=== PATIENT | male | born 1950 | race Caucasian/White ===

== ENCOUNTER 2020-05-25 07:46 | Inpatient (IN) ==
--- NOTE | 2020-05-07 09:49 | PAT Medication Instructions ---
Medication Instructions Date of Service May 07, 2020 Home Medications aspirin 81 mg PO QPM clonidine HCl 0.4 mg PO BID diltiazem HCl 360 mg PO QPM hydrocodone-acetaminophen 1 - 2 tab PO Q8H PRN oxycodone 30 mg PO BID ASK your prescriber and surgeon aspirin 81 mg PO QPM Take morning of surgery With a small sip of water, OTHERWISE NOTHING TO EAT OR DRINK AFTER MIDNIGHT: clonidine HCl 0.4 mg PO BID hydrocodone-acetaminophen 1 - 2 tab PO Q8H PRN (okay to take up to 4 hours prior to surgery if needed) oxycodone 30 mg PO BID (okay to take up to 4 hours prior to surgery if needed) Take evening before surgery clonidine HCl 0.4 mg PO BID diltiazem HCl 360 mg PO QPM hydrocodone-acetaminophen 1 - 2 tab PO Q8H PRN (if needed) oxycodone 30 mg PO BID Other Notes If you have any questions please call us at [phone] or [phone] or [phone] or [phone]
--- NOTE | 2020-05-08 09:58 | Anesthesiology Consultation ---
Date of Service May 08, 2020 Assessment & Plan (1) Encounter for pre-operative examination: - Hx A. fib: SR on 12/2019 EKG. Patient on ASA, diltiazem. Patient states that Eliquis was discontinued "a while ago" by Dr. Hylton but most recent available cardiology note from 12/2019 mentions patient resuming Eliquis. Patient will see cardiology 05/11 and clarify whether or not he is to be taking Eliquis. Awaiting cardiology office visit note (Dr. Hylton). - Right "groin area" aneurysm: Awaiting most recent vascular note for aneurysm clarification ([facility]). Per PAT assessment on 05/08: Travel screen negative x 2+ weeks (traveled to [place] for 's doctor appt 3 weeks ago, followed COVID precaution guidelines). No known COVID-19 positive contacts. No current COVID-19 related symptoms. Surgeon arranging preop COVID testing. Awaiting results. Chart Review Chart Review: Patient seen in Pre Admission Testing Teaching & Discussion Pre-Anesthesia Teaching/Discussion Notes: Instructed NPO after midnight before surgery,except medications with 15 cc of water. Medication instructions provided according to the PAT guidelines. History Surgery Operation Date: 05/25/20 07:45 Proposed Procedures p L2-S1 Revison Decompression and Fusion, Spinal Cord Monitoring - Ryan King DO Height/Weight Height: 5 ft 7 in Weight: 84.7 kg Allergies Allergy/AdvReac Type Severity Reaction Status Date / Time No Known Allergies Allergy Verified 05/04/20 09:49 Medications Home Medications Medication Instructions Recorded Confirmed Last Taken aspirin 81 mg PO QPM 05/04/20 05/04/20 Unknown clonidine HCl 0.4 mg PO BID 05/04/20 05/04/20 Unknown diltiazem HCl 360 mg PO QPM 05/04/20 05/04/20 Unknown hydrocodone-acetaminophen 1 - 2 tab PO Q8H PRN 05/04/20 05/04/20 Unknown oxycodone 30 mg PO BID 05/04/20 05/04/20 Unknown Past Medical History Medical History (Updated 05/08/20 @ 11:30 by Katarina Hunter) Aneurysm "right groin area", stable under annual surveillance by [facility] vascular surgery Atrial fibrillation paroxysmal; SR per 12/2019 EKG, follows w/cardiology (Dr. 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) History of cardiac cath 2009- no stents/angioplasty History of cardioversion History of cholecystectomy History of lumbar surgery History of removal of cyst History of right inguinal hernia repair History of tonsillectomy Past Anesthesia History No Hx of Anesthesia Complications and No Family Hx of Anesthesia Complications History of PONV No Hx of PONV and No Hx of Motion Sickness Social History Smoking Status: Former smoker Do You Dip or Chew Tobacco: No Smoking End Date: Quit 8 years ago Hx Alcohol Use: No Hx Substance Use: No substance use type: does not use Review of Systems Patient denies chest pain, shortness of breath, dyspnea on exertion, fever, chills, cough, wheezing, palpitations. Physical Exam Vital Signs VITALS BP 174/83 P 70 TEMP 98.3 SP02 96%RA RESP 16 PHYSICAL Full neck and c-spine range of motion. Full TMJ range of motion. TMD 3.5 finger breaths Mallampati Score 3 Dentition: full dentures upper/lower Lungs: clear throughout to auscultation Cardiac: regular rate and rhythm, no murmurs noted Spine: normal Carotid arteries: negative bruit Extremities: right hand finger amputations Testing Laboratory Results 05/08/20 10:19 05/08/20 10:19 PT 10.9 Seconds (9.0-12.0) 05/08/20 10:19 INR 1.0 (0.9-1.1) 05/08/20 10:19 APTT 25.3 Seconds (21.0-31.0) 05/08/20 10:19 Urine Color Yellow 05/08/20 10:19 Urine Appearance Clear (Clear) 05/08/20 10:19 Urine pH 7.5 (4.5-7.5) 05/08/20 10:19 Ur Specific [place] 1.006 (1.000-1.030) 05/08/20 10:19 Urine Protein Negative (Negative) 05/08/20 10:19 Urine Glucose (UA) Negative (Negative) 05/08/20 10:19 Urine Ketones Negative (Negative) 05/08/20 10:19 Urine Nitrite Negative (Negative) 05/08/20 10:19 Ur Leukocyte Esterase Negative (Negative) 05/08/20 10:19 Blood Type AB Positive 05/08/20 10:19 Antibody Screen NEGATIVE 05/08/20 10:19 Electrocardiogram Date: 12/12/19 SR at 69bpm. RBBB. Atypical T axis/anterolateral depression (in setting of artifact/poor data quality). Reviewed by cardiology at 12/12/19 cardiology preop office visit and felt "cleared from cardiac standpoint" for back surgery. Chest X-Ray Date: 05/08/20 Findings: + NAD Echocardiogram Date: 11/06/17 EF 66%. Mild LAE. Borderline aortic root dilation. Grade I DD. No significant valvular disease.
--- NOTE | 2020-05-08 10:50 | XRay Report ---
XR chest Pre-admission PA/Lat CLINICAL HISTORY: pat preoperative COMPARISON STUDY: No previous studies for comparison. FINDINGS: The bones soft tissues and hemidiaphragms are normal. The cardiomediastinal silhouette is n ormal. The lungs are clear. The pulmonary vasculature is normal. IMPRESSION: Negative chest. ACT 112: Negative or not required by law. The above report was generated using voice recognition software. It may contain grammatical, syntax or spelling errors. Electronically signed by: Shahram Thompson M.D. 05/08/2020 10:49 AM
[2020-05-08 12:10] LABS: Basophils # (auto) 0.07 K/uL (0-0.2); Basophils % (auto) 0.7 %; Eosinophils # (auto) 0.09 K/uL (0-0.5); Eosinophils % (auto) 0.9 %; Hematocrit (blood only) 41.5 % (42-52); Hemoglobin 13.5 g/dL (14.0-18.0); Immature Granulocytes # (auto) 0.06 K/uL (0.00-0.02); Immature Granulocytes % (auto) 0.6 %; Lymphocytes # (auto) 1.13 K/uL (1.2-3.4); Lymphocytes % (auto) 11.6 %; Mean Corpuscular Hemoglobin 28.1 pg (25-34); Mean Corpuscular Hgb Conc 32.5 g/dL (32-36); Mean Corpuscular Volume 86.3 fL (80-100); Mean Platelet Volume 9.1 fL (7.4-10.4); Monocytes # (auto) 0.54 K/uL (0.11-0.59); Monocytes % (auto) 5.5 %; Neutrophils # (auto) 7.84 K/uL (1.4-6.5); Neutrophils % (auto) 80.7 %; Platelet Count 300 K/uL (130-400); RDW Coefficient of Variation 13.6 % (11.5-14.5); RDW Standard Deviation 42.8 fL (36.4-46.3); Red Blood Count 4.81 M/uL (4.7-6.1); White Blood Count 9.73 K/uL (4.8-10.8)
[2020-05-08 12:11] LABS: Appearance Urine Clear (Clear); Bilirubin Urine Negative (Negative); Blood Urine Negative (Negative); Color Urine Yellow; Glucose Urine UA Negative (Negative); Ketones Urine Negative (Negative); Leukocyte Esterase Urine Negative (Negative); Nitrite Urine Negative (Negative); Protein Urine Negative (Negative); Specific Gravity Urine 1.006 (1.000-1.030); Urobilinogen Urine Negative (Negative); pH Urine 7.5 (4.5-7.5)
[2020-05-08 12:19] LABS: BUN Creatinine Ratio 10.8 (10-20); Calcium 9.3 mg/dl (8.5-10.1); Creatinine Clr Calc Pharmacy 53.4 ml/min; Est GFR (African American) 61.8; Est GFR (Non-African American) 53.3
[2020-05-08 12:20] LABS: Partial Thromboplastin Ratio 0.9; Partial Thromboplastin Time 25.3 Seconds (21.0-31.0); Prothrombin Time 10.9 Seconds (9.0-12.0)
[~2020-05-25 07:46] MED LIST: ACETAMINOPHEN 500 MG TAB PO SCH; CEFAZOLIN 2000MG 2,000 MG/15 ML SYR IV SCH; CeleBREX 200 MG CAP PO SCH; GABAPENTIN 300 MG CAP PO SCH; LR 15ML/HR IV SCH
[2020-05-25] MEDS ORDERED: HYDROmorphone INJ 2 MG/ML SYR/VIAL ONE (08:19)
[2020-05-25] MEDS ORDERED: fentaNYL citrate 100 MCG/2 ML VIAL ONE (08:19)
[2020-05-25] MEDS ORDERED: MIDAZOLAM HCL 1 MG/ML 2ML VIAL ONE (08:19)
[2020-05-25] MEDS ORDERED: ePHEDrine sulfate 50 MG/ML AMP IV PRN (08:24)
[2020-05-25] MEDS ORDERED: ONDANSETRON INJ 2 MG/ML 2 ML VIAL IV PRN ×2 (08:24→12:50)
[2020-05-25] MEDS ORDERED: ATROPINE SULFATE 0.1 MG/ML 10ML SYR IV PRN (08:24)
--- NOTE | 2020-05-25 09:14 | History & Physical Bridge Note ---
Date of Service May 25, 2020 History & Physical Bridge Note I have examined the patient, reviewed the History & Physical and in the interval since the performance of the History & Physical I have noted the following changes of clinical significance: no changes noted
--- NOTE | 2020-05-25 09:15 | History & Physical Report ---
Date of Service May 25, 2020 Assessment & Plan (1) Neurogenic claudication due to lumbar spinal stenosis: Admission and Anticipated Discharge Date Admission Date: L2-S1 revision decompression fusion History of Present Illness Chief Complaint: Back and bilateral leg pain Primary Care Provider: Joseph Bradley This is a 7-year-old male who presents with worsening back and bilateral leg pain. After failing extensive course of nonoperative care here for surgical intervention. Allergies Allergy/AdvReac Type Severity Reaction Status Date / Time No Known Allergies Allergy Verified 05/25/20 08:19 Home Medications Home Medications Medication Instructions Recorded Confirmed Type aspirin 81 mg PO QPM 05/04/20 05/25/20 History clonidine HCl 0.4 mg PO BID 05/04/20 05/25/20 History diltiazem HCl 360 mg PO QPM 05/04/20 05/25/20 History hydrocodone-acetaminophen 1 - 2 tab PO Q8H PRN 05/04/20 05/25/20 History oxycodone 30 mg PO BID 05/04/20 05/25/20 History Past Med/Surg History Medical History (Updated 05/25/20 @ 09:15 by Ryan King DO) Aneurysm "right groin area", stable under annual surveillance by [facility] vascular surgery Atrial fibrillation paroxysmal; SR per 12/2019 EKG, follows w/cardiology (Dr. 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) History of cardiac cath 2009- no stents/angioplasty History of cardioversion History of cholecystectomy History of lumbar surgery History of removal of cyst History of right inguinal hernia repair History of tonsillectomy Family History Mother Diabetes Father Colon cancer Other No family history of adverse response to anesthesia Social History Smoking Status: Former smoker Smoking End Date: Quit 8 years ago; Second Hand Exposure: No; Do You Dip or Chew Tobacco: No; Tobacco Cessation Education Requested by Patient: No Hx Alcohol Use: No Hx Substance Use: No Preferred Language: [place] Communication Ability: Effective 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 Heart regular rate and rhythm. Lungs clear to auscultation. Results & Data ([facility]) Vital Signs (Past 12 Hours) Vital Signs Temp Pulse Resp BP Pulse Ox 05/25/20 08:24 36.7 C 74 18 163/82 H 93
[2020-05-25] MEDS ORDERED: BUPIVACAINE/EPINEPHRINE 0.25% 1:200,000 30 ML VIAL ONE (09:26)
[2020-05-25] MEDS ORDERED: BACITRACIN INJ 50,000 UNIT VIAL ONE (09:26)
[2020-05-25] MEDS ORDERED: ALBUMIN HUMAN 5% 12.5 GM/250 ML VIAL IV ONE (09:38)
[2020-05-25] MEDS ORDERED: DEXAMETHASONE SOD INJ 4 MG/ML VIAL ONE (11:16)
[2020-05-25] MEDS ORDERED: ROCURONIUM BROMIDE 10 MG/ML 5 ML VIAL IV ONE ×2 (11:16→13:58)
[2020-05-25] MEDS ORDERED: LIDOCAINE HCL 2% 2 ML VIAL/AMP(20MG/ML) INFIL ONE (11:16)
[2020-05-25] MEDS ORDERED: PROPOFOL IV EMULSION 10 MG/ML 20 ML VIAL IV ONE (11:16)
[2020-05-25] MEDS ORDERED: ONDANSETRON INJ 2 MG/ML 2 ML VIAL ONE (11:16)
[2020-05-25] MEDS ORDERED: ePHEDrine sulfate 50 MG/ML SYR ONE (11:17)
[2020-05-25] MEDS ORDERED: NEOSTIGMINE METHYLSULFATE 1 MG/ML 10ML VIAL ONE (11:17)
[2020-05-25] MEDS ORDERED: GLYCOPYRROLATE 0.2 MG/ML VIAL ONE (11:17)
[2020-05-25] MEDS ORDERED: FLOSEAL HEMOSTATIC MATRIX 10ML TOP ONE (12:25)
--- NOTE | 2020-05-25 12:34 | Fluoroscopy Report ---
FL lumbar spine 2-3V HISTORY: 70 years-old Male L2-S1 REVISON DECOMPRESSION AND FUSION COMPARISON: Chest radiograph 03/08/2020 TECHNIQUE: 3 spot fluoroscopic images of the lumbar spine were obtained utilizing 38.6 seconds fluoro scopy time FINDINGS: Posterior interbody screws at L2-S1 appear intact. Multilevel disc space narrowing with spondylitic s purring and facet arthrosis. IMPRESSION: Fluoroscopic assistance as above. Please see operative report for further details. ACT 112: Negative or not required by law. The above report was generated using voice recognition software. It may contain grammatical, syntax o r spelling errors. Electronically signed by: Daniel Root M.D. 05/25/2020 12:32 PM
[2020-05-25] MEDS ORDERED: HYDROmorphone INJ 0.5 MG/0.5 ML SYR IV PRN (12:50)
[2020-05-25] MEDS ORDERED: ONDANSETRON 4 MG OD TAB PO PRN (12:50)
[2020-05-25] MEDS ORDERED: PROMETHAZINE HCL 12.5 MG in SODIUM CHLORIDE 0.9% 50 ML IV PRN (12:50)
[2020-05-25] MEDS ORDERED: METOCLOPRAMIDE HCL INJ 5 MG/ML 2 ML VIAL IV PRN (12:50)
[2020-05-25] MEDS ORDERED: MAGNESIUM HYDROXIDE SUSP 30 ML UDC PO PRN (12:50)
[2020-05-25] MEDS ORDERED: ACETAMINOPHEN 500 MG TAB PO PRN (12:50)
[2020-05-25] MEDS ORDERED: ACETAMINOPHEN 1,000 MG/100 ML VIAL IV PRN (12:50)
[2020-05-25] MEDS ORDERED: LORazepam 0.5 MG/1 ML VIAL IV PRN (12:50)
[2020-05-25] MEDS ORDERED: LORazepam 0.5 MG TAB PO PRN (12:50)
[2020-05-25] MEDS ORDERED: DO NOT ADMINISTER PNEUMOCOCCAL VACCINE PRN (12:50)
[2020-05-25] MEDS ORDERED: TRAMADOL HCL 50 MG TABLET PO PRN (12:50)
[2020-05-25] MEDS ORDERED: NALOXONE HCL 0.4 MG/1 ML VIAL/CARP IV PRN (12:50)
[2020-05-25] MEDS ORDERED: FAMOTIDINE 20 MG TAB PO PRN (12:50)
[2020-05-25] MEDS ORDERED: DO NOT ADMINISTER FLU VACCINE PRN (12:50)
[2020-05-25] MEDS ORDERED: ALUMINUM/MAGNESIUM SUSP 30 ML UDC PO PRN (12:50)
[2020-05-25] MEDS ORDERED: SOD PHOSPHATE/SOD BIPHOSPHATE ENEMA 132 ML BTL PR PRN (12:50)
[2020-05-25] MEDS ORDERED: bisacodyL 10 MG SUPP PR PRN (12:50)
--- NOTE | 2020-05-25 12:50 | Operative Report ---
Post Operative Report Pre & Post Diagnosis Operation Date: 05/25/20 09:35 Pre-Op Diagnosis: Spinal Stenosis, Lumbar Region Post-Op Diagnosis: Spinal Stenosis, Lumbar Region I identified the patient and participated in the time-out.: Yes Procedure Operation Date: 05/25/20 09:35 Actual Procedures #1 revision decompression L4-5 L5-S1. #2 posterior spinal fusion L2-3, L3-4, L4-5 and L5-S1. #3 placement posterior segmental instrumentation L2-S1. #4 placement infuse collagen sponge plan master graft in the posterior gutters L 2 to S1. Surgeon Ryan King, Dish Carrier Gavin Aguilar Estimated Blood Loss 100 Findings Consistent with Post-Op Diagnosis Specimens None Indications This is a 70-year-old male who presents with marked decline in status and ambulating ambulate for any distance and is here to undergo the above-mentioned procedure. Description of Procedure Patient was met with identified informed consent obtained. Patient was then taken to the operative suite underwent an patient placed in a prone position the Zain table on top of the Tres frame. All bony prominences well-padded eyes inspected to ensure no external pressure placed upon up at this point the lumbar spine was prepped and draped in a sterile fashion. Sharp dissection with assistance pericardial performed down to and exposing the remaining lamina and transverse processes of L2 and L3-L4-L5 and sacral ala bilaterally. And then performed revision decompression medial facetectomies L4-5 L5-S1. Pedicle screws were then placed in L2 L3-L4-L5 and S1 levels bilaterally with us assistance of fluoroscopy the proper sized ty locked in position. Transverse processes of L2 L3-L4-L5 and the sacral ala were then burred to subcortical bleeding bone. Infuse collagen sponge and master graft was placed in posterior gutters. An incidental durotomy was noted proximally at the L2-3 level and closed with interrupted 4-0 Nurolon and DuraSeal. No persistent leak was noted. 15 round NAGÉLICA drain inserted. The incision was then closed with 1 Vicryl in the fascia 2-0 Vicryl subcutaneously and 4 Monocryl for final skin closure. Steri- Strip sterile dressings placed. Patient waken taken PACU stable condition. Please note Gavin burciaga was present at the entire procedure involved the patient positioning complex portions of the surgery and final skin closure. Lastly spinal cord monitoring was utilized throughout the procedure no changes noted. I attest to the content of the Intraoperative Record and any orders documented therein. Any exceptions are noted below.
--- NOTE | 2020-05-25 13:44 | Anesthesiology Progress Note ---
Date of Service May 25, 2020 Anesthesia Post Procedure Vital Signs Vital Signs: Temp Pulse Pulse Resp BP Pulse Ox 05/25/20 13:35 85 19 145/78 H 96 05/25/20 13:25 75 15 131/65 98 05/25/20 13:15 78 11 L 135/65 97 05/25/20 13:06 97.9 F 92 H 16 144/69 H 98 05/25/20 08:24 98.1 F 74 18 163/82 H 93 Pain Intensity Back: Pain Intensity: 1 Transfer of Care Handoff Completed per policy Notes Mental Status: alert / awake / arousable and participated in evaluation Patient Amnestic to Procedure: Yes Nausea / Vomiting: adequately controlled Pain: adequately controlled Airway Patency, RR, SpO2: stable & adequate BP & HR: stable & adequate Hydration State: stable & adequate Anesthetic Complications: no major complications apparent and Pt Satisfied with anesthetic care
[2020-05-25] MEDS ORDERED: LARYING-O-JET KIT (LTA) ONE (13:57)
[2020-05-25] MEDS: fentaNYL citrate 100 MCG/2 ML VIAL IV PRN ×4 (14:40→15:00)
[2020-05-25] MEDS: SODIUM CHLORIDE 0.9% 1000ML 1,000 ML IV SCH (15:50)
[2020-05-25] MEDS: HYDROmorphone INJ 1 MG/ML SYRINGE IV PRN (15:57)
--- NOTE | 2020-05-25 17:52 | Hospitalist Consultation ---
Date of Consultation May 25, 2020 Assessment & Plan (1) Neurogenic claudication due to lumbar spinal stenosis: - POD#0 L2-S1 revision of decompression and fusion by Dr. King; incidental durotomy was noted during surgery - activity and wound care orders as per ortho - pain control with bowel regimen - PT/OT - monitor H/H for acute blood loss anemia and transfuse blood products PRN - EBL 100 cc (2) Atrial fibrillation: -Paroxysmal -Heart rate currently auscultates regular on exam -Rate controlled on diltiazem, will continue -Per review of patient record, patient declines anticoagulation (3) HTN (hypertension): -BP mildly elevated, likely situational -Continue home doses of clonidine and diltiazem, making adjustments as needed (4) DVT prophylaxis: -Teds/SCDs as per spine Ortho Thank you for this consultation. We will follow the patient with you during their hospital stay. You can reach a member of the [facility] Hospitalist Team 27/04 via pager @ [phone]. Supervising Physician Co-Signing Physician Notes Patient seen and examined by me, care coordinated with HILDA Pittman, please refer to her note above for further detail. Pt is a 70 y/o male with hx of paroxysmal atrial fibrillation, HTN, TIA, carotid artery stenosis, spinal stenosis who is now status post L2-S1 revision of decompression and fusion by Dr. King. An incidental durotomy was noted during patient surgery. Postoperatively, the patient is doing well. Reports his pain is well controlled. Denies numbness and tingling to lower extremities. Patient is currently lying in bed, in no acute distress, he is alert and oriented and answers questions appropriately. Patient's is at the bedside. Heart sounds regular, lung sounds clear to auscultation bilaterally, without any wheezing rhonchi or crackles noted. Abdomen soft, obese, nontender, nondistended, positive bowel sounds. Gregory catheter is in place draining clear yellow urine. There is no sensory loss noted to lower extremities. Patient is able to move lower extremities while lying in bed. SCDs are placed. Skin is war m, dry, well-perfused. Continue to closely monitor vital signs, encourage incentive spirometry, monitor for postoperative blood loss anemia. Yo Coppola MD History of Present Illness Reason for Consultation: Postop medical management Requesting Physician: Dr. King Attending Physician: Dr. Coppola History of Present Illness 70-year-old male with PMH paroxysmal atrial fibrillation, HTN, and other problems listed below who is status post L2-S1 revision of decompression and fusion by Dr. King. An incidental durotomy was noted during patient surgery. Postoperatively, the patient is doing well. He complains of a dry mouth. Reports his pain is well controlled. Denies numbness and tingling to lower extremities. No abdominal pain or nausea. Denies chest pain or shortness of breath. No lightheadedness or dizziness. Gregory catheter is in place draining clear yellow urine. Allergies Allergy/AdvReac Type Severity Reaction Status Date / Time No Known Allergies Allergy Verified 05/25/20 08:19 Home Medications Home Medications Medication Instructions Recorded Confirmed Type aspirin 81 mg PO QPM 05/04/20 05/25/20 History clonidine HCl 0.4 mg PO BID 05/04/20 05/25/20 History diltiazem HCl 360 mg PO QPM 05/04/20 05/25/20 History hydrocodone-acetaminophen 1 - 2 tab PO Q8H PRN 05/04/20 05/25/20 History oxycodone 30 mg PO BID 05/04/20 05/25/20 History Patient History Medical History Aneurysm "right groin area", stable under annual surveillance by [facility] vascular surgery Atrial fibrillation paroxysmal; SR per 12/2019 EKG, follows w/cardiology (Dr. 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) History of cardiac cath 2009- no stents/angioplasty History of cardioversion History of cholecystectomy History of lumbar surgery History of removal of cyst History of right inguinal hernia repair History of tonsillectomy Family History Mother Diabetes Father Colon cancer Other No family history of adverse response to anesthesia Social History Smoking Status: Former smoker Smoking End Date: Quit 8 years ago; Second Hand Exposure: No; Do You Dip or Chew Tobacco: No; Tobacco Cessation Education Requested by Patient: No Hx Alcohol Use: No Hx Substance Use: No Preferred Language: Jordanian Communication Ability: Effective 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 Beliefs That Will Affect Care: None Current Living Situation: Spouse Feels Safe at Home: Yes Safety Concerns: Feels Safe At This Time Review of Systems Review of Systems: ROS per HPI, all other systems reviewed and negative Physical Exam Constitutional: WD/WN, vitals as above Eyes: PERRL, conjunctivae normal, anicteric sclerae ENMT: Ears: no external ear abnormality Nose: no external nose abnormality Mouth: + dry oral mucous membranes Respiratory: normal respiratory effort, lungs clear to auscultation Cardiovascular: Rate/Rhythm: regular rate and regular rhythm Vessels: normal peripheral pulses Extremities: no edema Gastrointestinal (Abdomen): normal bowel sounds, soft, nontender, no hepatosplenomegaly Musculoskeletal: no cyanosis or clubbing, extremities motor strength 5/5 S /p back surgery, pedal pushes and pull strong bilaterally, drain in place draining bloody drainage Skin: no rashes, warm and dry Neurologic: PERRL, EOMI, accommodation nl, no face palsy, no dysarthria Psychiatric: A+Ox3, euthymic affect Results & Data Results & Data ([facility]) Vital Signs (Past 12 Hours) Vital Signs Temp Pulse Pulse Resp BP BP Pulse Ox 05/25/20 17:31 36.6 C 83 16 155/78 H 98 05/25/20 16:39 74 17 151/69 H 98 05/25/20 16:11 36.6 C 79 16 153/71 H 97 05/25/20 15:00 36.8 C 76 15 151/79 H 93 05/25/20 14:50 36.8 C 71 14 134/75 97 05/25/20 14:40 36.8 C 79 11 L 155/80 H 97 05/25/20 14:25 36.8 C 71 18 149/70 H 95 05/25/20 14:15 73 11 L 149/73 H 95 05/25/20 14:05 84 13 157/77 H 97 05/25/20 13:55 36.8 C 68 16 127/66 94 05/25/20 13:45 36.8 C 80 17 143/71 H 93 05/25/20 13:35 85 19 145/78 H 96 05/25/20 13:25 75 15 131/65 98 05/25/20 13:15 78 11 L 135/65 97 05/25/20 13:06 36.6 C 92 H 16 144/69 H 98 05/25/20 08:24 36.7 C 74 18 163/82 H 93
[2020-05-25] MEDS: CEFAZOLIN 2000MG 2,000 MG/15 ML SYR IV SCH (18:18)
[2020-05-25] MEDS: OXYCODONE HCL IR 5 MG TAB (IMMEDIATE RELEASE) PO PRN (18:25)
[2020-05-25] MEDS: OXYCODONE HCL 15 MG TABCR (OXYCONTIN) PO SCH (20:08)
[2020-05-25] MEDS: cloNIDine HCL 0.1 MG TAB PO SCH (20:09)
[2020-05-25] MEDS: DOCUSATE SODIUM/SENNA 50/8.6MG TAB PO SCH (20:09)
[2020-05-25] MEDS: dilTIAZem HCL 180 MG CAPCR PO SCH (20:10)
[2020-05-25] MEDS: ASPIRIN 81 MG ECTAB PO SCH (20:11)
[2020-05-26] MEDS: CEFAZOLIN 2000MG 2,000 MG/15 ML SYR IV SCH (01:51)
[2020-05-26] MEDS: OXYCODONE HCL IR 5 MG TAB (IMMEDIATE RELEASE) PO PRN ×3 (01:57→15:44)
[2020-05-26] MEDS: HYDROmorphone INJ 1 MG/ML SYRINGE IV PRN ×3 (05:15→20:01)
[2020-05-26] MEDS: POLYETHYLENE (MIRALAX) 17 GM PACK PO SCH ×4 (05:19→23:36)
[2020-05-26 06:16] LABS: Hematocrit (blood only) 33.5 % (42-52); Hemoglobin 11.4 g/dL (14.0-18.0); Immature Granulocytes # (auto) 0.07 K/uL (0.00-0.02); Immature Granulocytes % (auto) 0.4 %; Lymphocytes # (auto) 0.63 K/uL (1.2-3.4); Mean Corpuscular Hemoglobin 28.5 pg (25-34); Mean Corpuscular Volume 83.8 fL (80-100); Monocytes # (auto) 0.56 K/uL (0.11-0.59); Monocytes % (auto) 3.5 %; Neutrophils # (auto) 14.61 K/uL (1.4-6.5); Neutrophils % (auto) 92.1 %; Platelet Count 197 K/uL (130-400); RDW Coefficient of Variation 12.9 % (11.5-14.5); White Blood Count 15.87 K/uL (4.8-10.8)
[2020-05-26 06:42] LABS: BUN Creatinine Ratio 9.6 (10-20); Calcium 8.7 mg/dl (8.5-10.1); Creatinine Clr Calc Pharmacy 60.8 ml/min; Est GFR (Non-African American) 62.2; Potassium 4.4 mmol/L (3.5-5.1)
[2020-05-26] MEDS: SODIUM CHLORIDE 0.9% 1000ML 1,000 ML IV SCH (07:17)
[2020-05-26] MEDS: cloNIDine HCL 0.1 MG TAB PO SCH ×2 (09:01→20:48)
[2020-05-26] MEDS: OXYCODONE HCL 15 MG TABCR (OXYCONTIN) PO SCH ×2 (09:01→20:48)
--- NOTE | 2020-05-26 09:30 | Hospitalist Progress Note ---
Date of Service May 26, 2020 Assessment & Plan (1) Neurogenic claudication due to lumbar spinal stenosis: POD#1 L2-S1 revision of decompression and fusion by Dr. King; incidental durotomy was noted during surgery Resume Post Op Care per Surgery Protocol Incentive Spirometry 10x per Hour Resume Relative Home Meds Where Appropriate PT/OT with appropriate fall precautions Transition from IV to PO Pain control DVT Prophylaxis Per Surgery Protocol Monitor Daily Labs (2) Atrial fibrillation: -Paroxysmal -Heart rate controlled -Rate controlled on diltiazem, will continue -Per review of patient record, patient declines anticoagulation (3) HTN (hypertension): -BP normal -Continue home doses of clonidine and diltiazem, making adjustments as needed (4) DVT prophylaxis: -Teds/SCDs as per spine Ortho Labs Checked IS ROS-No Headache, No Visual Changes, No Nausea, No Vomiting, No Fever, No Chills, No Neck Pain or Stiffness, No Chest Pain, No Palpitations, No SOB, No GARCIA, No Cough, No Sputum, No Wheezing, No Abdominal Pain, No Diarrhea, No Hematemesis, No Hemoptysis, No Unexpected Weight Loss, No Flank pain, No Melena, No Hematochezia, No Frequency, No Urgency, No Burning, No Hematuria, No Rashes, No Diaphoresis. Appetite is Normal Sore back. no pain in legs Physical Exam Gen-AAO x 3, NAD, Afebrile Head-NCAT, EOMI, PERRLA, Anicteric Sclera, No Posterior Pharyngeal Erythema Neck-Supple, No JVD, No Thyromegaly, No Masses, No LAD, No Bruits Lungs-Clear to Auscultation Bilaterally, No Rales, No Rhonchi, No Wheezing, No Crepitus Chest-No S4, +S1, +S2, No S3, No Murmurs, No Rubs, No Gallops, No Ectopy Abdomen-Soft, Bowel Sounds Present, Non Tender, Non Distended, No Hepatomegaly, No Splenomegaly, No Palpable Masses, No Rebound, No Rigidity, No Guarding Musculoskeletal-Full Range of Motion Bilaterally, No CVAT Extremities-No Cyanosis, No Clubbing, No Edema Nuero-Cranial Nerves II-XII grossly intact, Motor WNL, DTRs WNL, Strength WNL, Non Focal Psych-Normal Mood Admission and Anticipated Discharge Date Admission Date: May 25, 2020 Results & Data Results & Data ([facility]) Vital Signs (Past 12 Hours) Vital Signs Temp Pulse Pulse Resp BP BP Pulse Ox 05/26/20 07:42 36.7 C 78 20 123/65 90 05/26/20 05:20 92 05/26/20 03:19 36.8 C 79 14 159/83 H 96 05/26/20 00:02 36.7 C 97 H 14 160/93 H 95
--- NOTE | 2020-05-26 09:55 | Orthopedic Progress Note ---
Date of Service May 26, 2020 Assessment & Plan (1) Neurogenic claudication due to lumbar spinal stenosis: Admission and Anticipated Discharge Date Admission Date: May 25, 2020 We will discontinue his drain later today. Maintain bedrest but may sit up as t olerated. Begin transfers tomorrow. Subjective Patient's back pain is controlled feels his leg symptoms have improved. Physical Exam Physical Exam: On exam is good strength testing. Was able to sit up in bed without headache nausea or vomiting. Results & Data ([facility]) Vital Signs (Past 12 Hours) Vital Signs Temp Pulse Pulse Resp BP BP Pulse Ox 05/26/20 07:42 36.7 C 78 20 123/65 90 05/26/20 05:20 92 05/26/20 03:19 36.8 C 79 14 159/83 H 96 05/26/20 00:02 36.7 C 97 H 14 160/93 H 95
[2020-05-26] MEDS: dilTIAZem HCL 180 MG CAPCR PO SCH (20:48)
[2020-05-26] MEDS: DOCUSATE SODIUM/SENNA 50/8.6MG TAB PO SCH (20:48)
[2020-05-26] MEDS: ASPIRIN 81 MG ECTAB PO SCH (20:48)
[2020-05-27] MEDS: HYDROmorphone INJ 1 MG/ML SYRINGE IV PRN ×3 (00:39→16:00)
[2020-05-27] MEDS: POLYETHYLENE (MIRALAX) 17 GM PACK PO SCH ×3 (05:15→18:26)
[2020-05-27 05:44] LABS: Basophils # (auto) 0.01 K/uL (0-0.2); Basophils % (auto) 0.1 %; Eosinophils # (auto) 0.05 K/uL (0-0.5); Eosinophils % (auto) 0.4 %; Hematocrit (blood only) 33.1 % (42-52); Hemoglobin 11.3 g/dL (14.0-18.0); Immature Granulocytes # (auto) 0.05 K/uL (0.00-0.02); Immature Granulocytes % (auto) 0.4 %; Lymphocytes # (auto) 0.59 K/uL (1.2-3.4); Lymphocytes % (auto) 4.2 %; Mean Corpuscular Hemoglobin 28.8 pg (25-34); Mean Corpuscular Hgb Conc 34.1 g/dL (32-36); Mean Corpuscular Volume 84.2 fL (80-100); Mean Platelet Volume 8.9 fL (7.4-10.4); Monocytes # (auto) 1.14 K/uL (0.11-0.59); Monocytes % (auto) 8.1 %; Neutrophils # (auto) 12.31 K/uL (1.4-6.5); Neutrophils % (auto) 86.8 %; Platelet Count 198 K/uL (130-400); RDW Coefficient of Variation 13.2 % (11.5-14.5); RDW Standard Deviation 40.3 fL (36.4-46.3); Red Blood Count 3.93 M/uL (4.7-6.1); White Blood Count 14.15 K/uL (4.8-10.8)
[2020-05-27 06:07] LABS: BUN Creatinine Ratio 13.4 (10-20); Calcium 8.4 mg/dl (8.5-10.1); Est GFR (African American) 81.1; Potassium 4.4 mmol/L (3.5-5.1)
[2020-05-27 06:10] LABS: Albumin Globulin Ratio 0.8 (0.9-2); Bilirubin,Total 0.3 mg/dl (0.2-1)
[2020-05-27] MEDS: OXYCODONE HCL 15 MG TABCR (OXYCONTIN) PO SCH ×2 (07:31→20:31)
[2020-05-27] MEDS: cloNIDine HCL 0.1 MG TAB PO SCH ×2 (07:32→20:31)
[2020-05-27] MEDS: OXYCODONE HCL IR 5 MG TAB (IMMEDIATE RELEASE) PO PRN ×3 (07:32→18:37)
--- NOTE | 2020-05-27 08:27 | Hospitalist Progress Note ---
Date of Service May 27, 2020 Assessment & Plan (1) Neurogenic claudication due to lumbar spinal stenosis: POD#1 L2-S1 revision of decompression and fusion by Dr. King; incidental durotomy was noted during surgery Resume Post Op Care per Surgery Protocol Incentive Spirometry 10x per Hour Resume Relative Home Meds Where Appropriate PT/OT with appropriate fall precautions Transition from IV to PO Pain control DVT Prophylaxis Per Surgery Protocol Monitor Daily Labs (2) Atrial fibrillation: -Paroxysmal -Heart rate controlled -Rate controlled on diltiazem, will continue -Per review of patient record, patient declines anticoagulation (3) HTN (hypertension): monitoring (4) DVT prophylaxis: -Teds/SCDs as per spine Ortho c/o cough and tender neck-Sputum GS C&S, CXR Labs Checked IS ROS-No Headache, No Visual Changes, No Nausea, No Vomiting, No Fever, No Chills, No Neck Pain or Stiffness, No Chest Pain, No Palpitations, No SOB, No GARCIA, No Cough, No Sputum, No Wheezing, No Abdominal Pain, No Diarrhea, No Hematemesis, No Hemoptysis, No Unexpected Weight Loss, No Flank pain, No Melena, No Hematochezia, No Frequency, No Urgency, No Burning, No Hematuria, No Rashes, No Diaphoresis. Appetite is Normal Sore back. no pain in legs Physical Exam Gen-AAO x 3, NAD, Afebrile Head-NCAT, EOMI, PERRLA, Anicteric Sclera, No Posterior Pharyngeal Erythema Neck-Supple, No JVD, No Thyromegaly, No Masses, No LAD, No Bruits Lungs-Clear to Auscultation Bilaterally, No Rales, No Rhonchi, No Wheezing, No Crepitus Chest-No S4, +S1, +S2, No S3, No Murmurs, No Rubs, No Gallops, No Ectopy Abdomen-Soft, Bowel Sounds Present, Non Tender, Non Distended, No Hepatomegaly, No Splenomegaly, No Palpable Masses, No Rebound, No Rigidity, No Guarding Musculoskeletal-Full Range of Motion Bilaterally, No CVAT Extremities-No Cyanosis, No Clubbing, No Edema Nuero-Cranial Nerves II-XII grossly intact, Motor WNL, DTRs WNL, Strength WNL, Non Focal Psych-Normal Mood Admission and Anticipated Discharge Date Admission Date: May 25, 2020 Results & Data Results & Data ([facility]) Vital Signs (Past 12 Hours) Vital Signs Temp Pulse Resp BP Pulse Ox 05/27/20 07:34 36.7 C 77 22 158/80 H 90 05/26/20 22:01 36.8 C 63 16 129/71 90 05/26/20 20:46 62 128/69
--- NOTE | 2020-05-27 08:48 | XRay Report ---
XR chest 1V portable CLINICAL HISTORY: Cough, Phlegm COMPARISON STUDY: Chest radiograph May 08, 2020. FINDINGS: There is no pneumothorax. Mild cardiomegaly is noted without evidence for pulmonary edema. Mild elevation the right hemidiaphragm. There may be a trace right pleural effusion. Bibasilar opacit ies are noted, greater on the right. IMPRESSION: 1. Interval development of bibasilar opacities, greater on the right. The findings may reflect atelec tasis or pneumonia. Radiographic follow up is recommended. 2. Trace right pleural effusion. 3. No evidence for pulmonary edema. ACT 112: Negative or not required by law. Electronically signed by: Noel Negrete M.D. 05/27/2020 8:47 AM
[2020-05-27] MEDS: lisinopriL 10 MG TAB PO SCH (09:55)
--- NOTE | 2020-05-27 12:11 | Orthopedic Progress Note ---
Date of Service May 27, 2020 Assessment & Plan (1) Neurogenic claudication due to lumbar spinal stenosis: Admission and Anticipated Discharge Date Admission Date: May 25, 2020 Today we will begin bed to chair transfers ambulation as tolerated about the mikhail m. If this goes well initiate formal physical therapy tomorrow. We will maintain a Gregory until we are confident he can ambulate on his own. Subjective Patient complaining of some modest back pain but well controlled. Denies headaches nausea or vomiting. No leg pain. Physical Exam Physical Exam: Patient is good strength testing appears comfortable. Results & Data ([facility]) Vital Signs (Past 12 Hours) Vital Signs Temp Pulse Resp BP Pulse Ox 05/27/20 09:55 75 130/72 05/27/20 07:34 36.7 C 77 22 158/80 H 90
[2020-05-27] MEDS: cefTRIAXone SODIUM 2,000 MG in DEXTROSE 5% 50 ML IV SCH (12:44)
[2020-05-27] MEDS: AZITHROMYCIN 500 MG in DEXTROSE 5% 250 ML IV SCH (13:22)
[2020-05-27] MEDS: dilTIAZem HCL 180 MG CAPCR PO SCH (20:31)
[2020-05-27] MEDS: ASPIRIN 81 MG ECTAB PO SCH (20:32)
[2020-05-27] MEDS: DOCUSATE SODIUM/SENNA 50/8.6MG TAB PO SCH ×2 (20:32→20:35)
[2020-05-28] MEDS: OXYCODONE HCL IR 5 MG TAB (IMMEDIATE RELEASE) PO PRN ×3 (04:25→15:22)
[2020-05-28 06:00] LABS: Hematocrit (blood only) 30.3 % (42-52); Hemoglobin 10.4 g/dL (14.0-18.0); Mean Corpuscular Hemoglobin 28.7 pg (25-34); Mean Corpuscular Hgb Conc 34.3 g/dL (32-36); Mean Corpuscular Volume 83.7 fL (80-100); Mean Platelet Volume 8.9 fL (7.4-10.4); Platelet Count 201 K/uL (130-400); RDW Coefficient of Variation 13.3 % (11.5-14.5); RDW Standard Deviation 40.4 fL (36.4-46.3); Red Blood Count 3.62 M/uL (4.7-6.1); White Blood Count 14.12 K/uL (4.8-10.8)
[2020-05-28 06:22] LABS: BUN Creatinine Ratio 15.2 (10-20); Calcium 7.8 mg/dl (8.5-10.1); Creatinine Clr Calc Pharmacy 55.6 ml/min; Est GFR (African American) 64.7; Est GFR (Non-African American) 55.8; Potassium 3.9 mmol/L (3.5-5.1)
--- NOTE | 2020-05-28 07:46 | Hospitalist Progress Note ---
Date of Service May 28, 2020 Assessment & Plan (1) Neurogenic claudication due to lumbar spinal stenosis: 05/25/20 09:35 Actual Procedures:#1 revision decompression L4-5 L5-S1. #2 posterior spinal fusion L2-3, L3-4, L4-5 and L5-S1. #3 placement posterior segmental instrumentation L2-S1. #4 placement infuse collagen sponge plan master graft in the posterior gutters L 2 to S1. Surgeon Ryan King, DO Resume Post Op Care per Surgery Protocol Incentive Spirometry 10x per Hour Resume Relative Home Meds Where Appropriate PT/OT with appropriate fall precautions Transition to PO Pain control DVT Prophylaxis Per Surgery Protocol Monitor Daily Labs DC home from IM standpoint Zithromax total 5 days Omnicef total 10 days (2) Atrial fibrillation: -Heart rate controlled -Rate controlled on diltiazem, will continue -Per review of patient record, patient declines anticoagulation (3) HTN (hypertension): monitoring (4) DVT prophylaxis: PNA +- Atelectasis Labs Checked IS ROS-No Headache, No Visual Changes, No Nausea, No Vomiting, No Fever, No Chills, No Neck Pain or Stiffness, No Chest Pain, No Palpitations, No SOB, No GARCIA, No Cough, No Sputum, No Wheezing, No Abdominal Pain, No Diarrhea, No Hematemesis, No Hemoptysis, No Unexpected Weight Loss, No Flank pain, No Melena, No Hematochezia, No Frequency, No Urgency, No Burning, No Hematuria, No Rashes, No Diaphoresis. Appetite is Normal Sore back. no pain in legs Physical Exam Gen-AAO x 3, NAD, Afebrile Head-NCAT, EOMI, PERRLA, Anicteric Sclera, No Posterior Pharyngeal Erythema Neck-Supple, No JVD, No Thyromegaly, No Masses, No LAD, No Bruits Lungs-Clear to Auscultation Bilaterally, No Rales, No Rhonchi, No Wheezing, No Crepitus Chest-No S4, +S1, +S2, No S3, No Murmurs, No Rubs, No Gallops, No Ectopy Abdomen-Soft, Bowel Sounds Present, Non Tender, Non Distended, No Hepatomegaly, No Splenomegaly, No Palpable Masses, No Rebound, No Rigidity, No Guarding Musculoskeletal-Full Range of Motion Bilaterally, No CVAT Extremities-No Cyanosis, No Clubbing, No Edema Nuero-Cranial Nerves II-XII grossly intact, Motor WNL, DTRs WNL, Strength WNL, Non Focal Psych-Normal Mood Admission and Anticipated Discharge Date Admission Date: May 25, 2020 Results & Data Results & Data ([facility]) Vital Signs (Past 12 Hours) Vital Signs Temp Pulse Resp BP Pulse Ox 05/28/20 00:00 37.0 C 72 14 118/65 92 05/27/20 20:32 80 108/67
[2020-05-28] MEDS: OXYCODONE HCL 15 MG TABCR (OXYCONTIN) PO SCH ×2 (08:03→20:17)
[2020-05-28] MEDS: lisinopriL 10 MG TAB PO SCH (08:03)
[2020-05-28] MEDS: cloNIDine HCL 0.1 MG TAB PO SCH ×2 (08:04→20:17)
--- NOTE | 2020-05-28 09:43 | Orthopedic Progress Note ---
Date of Service May 28, 2020 Assessment & Plan (1) Neurogenic claudication due to lumbar spinal stenosis: Admission and Anticipated Discharge Date Admission Date: May 25, 2020 At this time will initiate physical therapy discontinue his Gregory continue to mo nitor his progress hopefully discharge home in the next few days. Subjective Patient denies any significant leg pain. Denies any severe back pain denies headaches nausea or vomiting. Physical Exam Physical Exam: Patient is in a chair at the bedside. He is not appear uncomfortable. He has no shortness of breath. Is good strength testing lower extremities. Results & Data ([facility]) Vital Signs (Past 12 Hours) Vital Signs Temp Pulse Resp BP Pulse Ox 05/28/20 07:44 37.1 C 76 16 125/70 95 05/28/20 00:00 37.0 C 72 14 118/65 92
--- NOTE | 2020-05-28 10:04 | Electrocardiogram Report ---
Test Reason : Blood Pressure : / mmHG Vent. 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
[2020-05-28] MEDS: HYDROmorphone INJ 1 MG/ML SYRINGE IV PRN (12:43)
[2020-05-28] MEDS: cefTRIAXone SODIUM 2,000 MG in DEXTROSE 5% 50 ML IV SCH (12:48)
[2020-05-28] MEDS: AZITHROMYCIN 500 MG in DEXTROSE 5% 250 ML IV SCH (14:00)
[2020-05-28] MEDS: ASPIRIN 81 MG ECTAB PO SCH (20:17)
[2020-05-28] MEDS: dilTIAZem HCL 180 MG CAPCR PO SCH (20:17)
[2020-05-28] MEDS: DOCUSATE SODIUM/SENNA 50/8.6MG TAB PO SCH (20:17)
[2020-05-29] MEDS: OXYCODONE HCL IR 5 MG TAB (IMMEDIATE RELEASE) PO PRN ×4 (03:50→19:55)
[2020-05-29 05:53] LABS: Hematocrit (blood only) 29.2 % (42-52); Hemoglobin 10.3 g/dL (14.0-18.0); Mean Corpuscular Hemoglobin 29.1 pg (25-34); Mean Corpuscular Hgb Conc 35.3 g/dL (32-36); Mean Corpuscular Volume 82.5 fL (80-100); Mean Platelet Volume 8.8 fL (7.4-10.4); Platelet Count 202 K/uL (130-400); RDW Coefficient of Variation 13.3 % (11.5-14.5); RDW Standard Deviation 40.8 fL (36.4-46.3); Red Blood Count 3.54 M/uL (4.7-6.1); White Blood Count 11.99 K/uL (4.8-10.8)
[2020-05-29 06:18] LABS: BUN Creatinine Ratio 15.7 (10-20); Calcium 8.4 mg/dl (8.5-10.1); Creatinine Clr Calc Pharmacy 53.1 ml/min; Est GFR (African American) 61.2; Est GFR (Non-African American) 52.8; Potassium 3.8 mmol/L (3.5-5.1)
[2020-05-29] MEDS: cloNIDine HCL 0.1 MG TAB PO SCH ×2 (08:12→20:46)
[2020-05-29] MEDS: lisinopriL 10 MG TAB PO SCH (08:12)
--- NOTE | 2020-05-29 08:38 | Hospitalist Progress Note ---
Date of Service May 29, 2020 Assessment & Plan (1) Neurogenic claudication due to lumbar spinal stenosis: 05/25/20 09:35 Actual Procedures:#1 revision decompression L4-5 L5-S1. #2 posterior spinal fusion L2-3, L3-4, L4-5 and L5-S1. #3 placement posterior segmental instrumentation L2-S1. #4 placement infuse collagen sponge plan master graft in the posterior gutters L 2 to S1. Surgeon Ryan King, DO Resume Post Op Care per Surgery Protocol Incentive Spirometry 10x per Hour Resume Relative Home Meds Where Appropriate PT/OT with appropriate fall precautions Transition to PO Pain control DVT Prophylaxis Per Surgery Protocol Monitor Daily Labs DC home from IM standpoint Zithromax total 5 days. Omnicef total 10 days-scripts sent to pharmacy already (2) Atrial fibrillation: -Heart rate controlled -Rate controlled on diltiazem, will continue -Per review of patient record, patient declines anticoagulation (3) HTN (hypertension): monitoring (4) DVT prophylaxis: PNA +- Atelectasis Labs Checked IS Ok to DC when OK c Ortho, Will follow to discharge ROS-No Headache, No Visual Changes, No Nausea, No Vomiting, No Fever, No Chills, No Neck Pain or Stiffness, No Chest Pain, No Palpitations, No SOB, No GARCIA, No Cough, No Sputum, No Wheezing, No Abdominal Pain, No Diarrhea, No Hematemesis, No Hemoptysis, No Unexpected Weight Loss, No Flank pain, No Melena, No Hematochezia, No Frequency, No Urgency, No Burning, No Hematuria, No Rashes, No Diaphoresis. Appetite is Normal Sore back. no pain in legs Physical Exam Gen-AAO x 3, NAD, Afebrile Head-NCAT, EOMI, PERRLA, Anicteric Sclera, No Posterior Pharyngeal Erythema Neck-Supple, No JVD, No Thyromegaly, No Masses, No LAD, No Bruits Lungs-Clear to Auscultation Bilaterally, No Rales, No Rhonchi, No Wheezing, No Crepitus Chest-No S4, +S1, +S2, No S3, No Murmurs, No Rubs, No Gallops, No Ectopy Abdomen-Soft, Bowel Sounds Present, Non Tender, Non Distended, No Hepatomegaly, No Splenomegaly, No Palpable Masses, No Rebound, No Rigidity, No Guarding Musculoskeletal-Full Range of Motion Bilaterally, No CVAT Extremities-No Cyanosis, No Clubbing, No Edema Nuero-Cranial Nerves II-XII grossly intact, Motor WNL, DTRs WNL, Strength WNL, Non Focal Psych-Normal Mood Admission and Anticipated Discharge Date Admission Date: May 25, 2020 Results & Data Results & Data ([facility]) Vital Signs (Past 12 Hours) Vital Signs Temp Pulse Resp BP Pulse Ox 05/29/20 07:31 36.9 C 76 18 119/67 93 05/28/20 23:24 37.1 C 71 24 98/57 L 95
[2020-05-29] MEDS: OXYCODONE HCL 15 MG TABCR (OXYCONTIN) PO SCH ×2 (09:35→20:49)
--- NOTE | 2020-05-29 12:07 | Orthopedic Progress Note ---
Date of Service May 29, 2020 Assessment & Plan (1) Neurogenic claudication due to lumbar spinal stenosis: Admission and Anticipated Discharge Date Admission Date: May 25, 2020 At this time we will continue physical therapy anticipate discharge home tomorro w with home health. Subjective Back pain controlled leg symptoms improved. Physical Exam Physical Exam: Patient is in the chair at the bedside. Is good strength testing. Results & Data ([facility]) Vital Signs (Past 12 Hours) Vital Signs Temp Pulse Resp BP Pulse Ox 05/29/20 07:31 36.9 C 76 18 119/67 93
[2020-05-29] MEDS: AZITHROMYCIN 250 MG TAB PO SCH (12:33)
[2020-05-29] MEDS: cefTRIAXone SODIUM 2,000 MG in DEXTROSE 5% 50 ML IV SCH (12:35)
[2020-05-29] MEDS: DOCUSATE SODIUM/SENNA 50/8.6MG TAB PO SCH (20:47)
[2020-05-29] MEDS: ASPIRIN 81 MG ECTAB PO SCH (20:47)
[2020-05-29] MEDS: dilTIAZem HCL 180 MG CAPCR PO SCH (20:47)
[2020-05-30] MEDS: OXYCODONE HCL IR 5 MG TAB (IMMEDIATE RELEASE) PO PRN ×4 (02:08→18:04)
[2020-05-30 05:49] LABS: Hematocrit (blood only) 28.7 % (42-52); Hemoglobin 9.9 g/dL (14.0-18.0); Mean Corpuscular Hemoglobin 28.6 pg (25-34); Mean Corpuscular Hgb Conc 34.5 g/dL (32-36); Mean Corpuscular Volume 82.9 fL (80-100); Mean Platelet Volume 8.6 fL (7.4-10.4); Platelet Count 244 K/uL (130-400); RDW Coefficient of Variation 13.3 % (11.5-14.5); RDW Standard Deviation 40.2 fL (36.4-46.3); Red Blood Count 3.46 M/uL (4.7-6.1); White Blood Count 11.36 K/uL (4.8-10.8)
[2020-05-30 06:18] LABS: BUN Creatinine Ratio 15.8 (10-20); Calcium 8.3 mg/dl (8.5-10.1); Creatinine Clr Calc Pharmacy 47.2 ml/min; Est GFR (Non-African American) 45.8
[2020-05-30] MEDS: OXYCODONE HCL 15 MG TABCR (OXYCONTIN) PO SCH ×2 (07:31→20:49)
--- NOTE | 2020-05-30 08:08 | Hospitalist Progress Note ---
Date of Service May 30, 2020 Assessment & Plan (1) Neurogenic claudication due to lumbar spinal stenosis: 05/25/20 09:35 Actual Procedures: #1 revision decompression L4-5 L5-S1. #2 posterior spinal fusion L2-3, L3-4, L4-5 and L5-S1. #3 placement posterior segmental instrumentation L2-S1. #4 placement infuse collagen sponge plan master graft in the posterior gutters L 2 to S1. Surgeon Ryan King, DO Resume Post Op Care per Surgery Protocol Incentive Spirometry 10x per Hour Resume Relative Home Meds Where Appropriate PT/OT with appropriate fall precautions Transition to PO Pain control DVT Prophylaxis Per Surgery Protocol Monitor Daily Labs DC home from IM standpoint Zithromax total 5 days. Omnicef total 10 days-scripts sent to pharmacy already Patient continued to has rhonchus sounds, satting about 90% on room air, added Flagyl, in case to cover for anaerobes/from possible aspiration Add Mucinex Patient is not very ambulatory, encouraged incentive spirometry Patient uses mostly opiate medication for pain control, will order lidocaine p atches as well, discussed with the patient different pain medication options, patient is resistant to take anything else besides opioids (2) Atrial fibrillation: -Heart rate controlled -Rate controlled on diltiazem, will continue -Per review of patient record, patient declines anticoagulation (3) HTN (hypertension): -Continue to monitor, no acute concerns at this time (4) DVT prophylaxis: PNA +- Atelectasis Labs Checked IS Ok to DC when OK c Ortho, Will follow to discharge Admission and Anticipated Discharge Date Admission Date: May 25, 2020 Subjective Patient is sitting in the chair, in no acute distress. Patient's is at the bedside. Currently denies any fevers, chills, chest pain, shortness of breath, abdominal pain, nausea or vomiting. He is on room air, conversing easily. Says he was ambulating 1 lap today and 1 yesterday. Discussed incentive spirometry, patient demonstrated that he can use it. Encouraged incentive spirometry. Review of Systems Review of Systems: All systems reviewed & are unremarkable except as noted in HPI & below Constitutional: no fever and no chills Respiratory: no cough and no dyspnea Cardiovascular: no chest pain and no palpitations Gastrointestinal: no abdominal pain, no nausea and no vomiting Physical Exam Physical Exam: Gen- elderly male, sitting up in a chair, AAO x 3, NAD, Afebrile Head- NCAT, EOMI, PERRLA, Anicteric Sclera, No Posterior Pharyngeal Erythema Neck-Supple, No JVD Lungs-no respiratory distress, no accessory muscle use, some diffuse rhonchi noted , no wheezing Chest- regular, +S1, +S2, No S3, No Murmurs, No Rubs, No Gallops Abdomen- Soft, Bowel Sounds Present, Non Tender, Non Distended, No Rebound, No Rigidity, No Guarding Musculoskeletal-moves all 4 extremities spontaneously Extremities- No Cyanosis, No Clubbing, No Edema Neuro-alert and oriented x3, speech fluent, no facial asymmetry, moves extremities spontaneous Psych-Normal Mood Results & Data Results & Data ([facility]) Vital Signs (Past 12 Hours) Vital Signs Temp Pulse Pulse Resp BP Pulse Ox 05/30/20 07:09 36.9 C 72 16 124/68 90 05/29/20 23:17 37.1 C 75 22 120/71 91 05/29/20 20:45 36.6 C 78 18 114/67 91 Laboratory Results 05/30/20 05/30/20 Range/Units 05:33 05:33 WBC 11.36 H (4.8-10.8) K/uL RBC 3.46 L (4.7-6.1) M/uL Hgb 9.9 L (14.0-18.0) g/dL Hct 28.7 L (42-52) % MCV 82.9 (80-100) fL MCH 28.6 (25-34) pg MCHC 34.5 (32-36) g/dL RDW Std Deviation 40.2 (36.4-46.3) fL RDW Coeff of Palma 13.3 (11.5-14.5) % Plt Count 244 (130-400) K/uL MPV 8.6 (7.4-10.4) fL Sodium 132 L (136-145) mmol/L Potassium 4.0 (3.5-5.1) mmol/L Chloride 100 (98-107) mmol/L Carbon Dioxide 29 (21-32) mmol/L Anion Gap 3.0 (3-11) BUN 24 H (7-18) mg/dl Creatinine 1.52 H (0.6-1.4) mg/dl Est Cr Clr Drug Dosing 47.2 ml/min Est GFR ( Amer) 53.0 Est GFR (Non-Af Amer) 45.8 BUN/Creatinine Ratio 15.8 (10-20) Glucose 167 H (70-99) mg/dl Calcium 8.3 L (8.5-10.1) mg/dl Medications Administered Current Inpatient Medications Acetaminophen (Acetaminophen 500 Mg Tab) 1,000 mg PO Q8H PRN PRN Reason: MILD Pain Scale 1,2,3 & Pre PT Stop: 06/24/20 12:49 Al Hydrox/Mg Hydrox/Simethicone (Aluminum/Magnesium Susp 30 Ml Udc) 30 ml PO Q6H PRN PRN Reason: Dyspepsia Stop: 06/24/20 12:49 Aspirin (Aspirin 81 Mg Ectab) 81 mg PO QPM NIDIA Stop: 06/24/20 20:59 Last Admin: 05/29/20 20:47 Dose: 81 mg Documented by: Azithromycin (Azithromycin 250 Mg Tab) 500 mg PO DAILY [facility]; Protocol Stop: 06/03/20 12:59 Last Admin: 05/29/20 12:33 Dose: 500 mg Documented by: Bisacodyl (Bisacodyl 10 Mg Supp) 10 mg MS DAILY PRN PRN Reason: Constipation Stop: 06/24/20 12:49 Clonidine HCl (Clonidine Hcl 0.1 Mg Tab) 0.4 mg PO BID [facility] Stop: 06/24/20 20:59 Last Admin: 05/29/20 20:46 Dose: 0.4 mg Documented by: Diltiazem HCl (Diltiazem Hcl 180 Mg Capcr) 360 mg PO QPM NIDIA Stop: 06/24/20 20:59 Last Admin: 05/29/20 20:47 Dose: 360 mg Documented by: Diphenhydramine HCl (Diphenhydramine Hcl 25 Mg Cap) 25 mg PO Q6H PRN PRN Reason: Allergic Rhinitis/Insomnia Stop: 06/24/20 12:49 Famotidine (Famotidine 20 Mg Tab) 20 mg PO Q12H PRN PRN Reason: Dyspepsia Stop: 06/24/20 12:49 Hydromorphone HCl (Hydromorphone Inj 0.5 Mg/0.5 Ml Syr) 0.5 mg IV Q3H PRN PRN Reason: MOD pain (scale 4-6) & Pre PT Stop: 06/08/20 12:49 Hydromorphone HCl (Hydromorphone Inj 1 Mg/Ml Syringe) 1 mg IV Q3H PRN PRN Reason: severe pain (scale 7-10) Stop: 06/08/20 12:49 Last Admin: 05/28/20 12:43 Dose: 1 mg Documented by: Hydroxyzine HCl (Hydroxyzine Hcl 25 Mg Tab) 25 mg PO Q8H PRN PRN Reason: Anxiety Stop: 06/24/20 12:49 Promethazine HCl 12.5 mg/ (Sodium Chloride) 50.5 mls @ 204 mls/hr IV Q6H PRN PRN Reason: Nausea &/or Vomiting Stop: 06/24/20 12:49 Lorazepam (Ativan) 0.5 mg in 1 mls @ 0.5 mls/min IV Q8H PRN PRN Reason: Sedation/Anxiety Stop: 06/24/20 12:49 Ceftriaxone Sodium 2,000 mg/ (Dextrose) 70 mls @ 100 mls/hr IV Q24H [facility] Stop: 06/03/20 12:29 Last Infusion: 05/29/20 13:17 Dose: Infused Documented by: Metronidazole (Flagyl) 500 mg in 100 mls @ 100 mls/hr IV Q8H [facility] Stop: 06/06/20 08:14 Influenza Virus Vaccine Quadrival (Do Not Administer Flu Vaccine) 1 ea N/A PRN PRN PRN Reason: Notification Stop: 06/24/20 12:49 Lisinop[facility] ([facility] 10 Mg Tab) [facility] Stop: 06/26/20 08:59 Last Admin: 05/29/20 08:12 Dose: 10 mg Documented by: Lorazepam (Lorazepam 0.5 Mg Tab) 0.5 mg PO Q8H PRN PRN Reason: Sedation/Anxiety Stop: 06/24/20 12:49 Magnesium Hydroxide (Magnesium Hydroxide Susp 30 Ml Udc) 30 ml PO DAILY PRN PRN Reason: Constipation Stop: 06/24/20 12:49 Metoclopramide HCl (Metoclopramide Hcl Inj 5 Mg/Ml 2 Ml Vial) 10 mg IV Q6H PRN PRN Reason: Nausea &/or Vomiting Stop: 06/24/20 12:49 Naloxone HCl (Naloxone Hcl 0.4 Mg/1 Ml Vial/Carp) 0.1 mg IV Q5M PRN; Protocol PRN Reason: Oversedation/Resp Depression Stop: 06/24/20 12:49 Ondansetron HCl (Ondansetron Inj 2 Mg/Ml 2 Ml Vial) 4 mg IV Q6H PRN PRN Reason: Nausea &/or Vomiting Stop: 06/24/20 12:49 Ondansetron HCl (Ondansetron 4 Mg Od Tab) 4 mg PO Q6H PRN PRN Reason: Nausea Stop: 06/24/20 12:49 Oxycodone HCl (Oxycodone Hcl Ir 5 Mg Tab (Immediate Release)) 5 - 10 mg PO Q4H PRN PRN Reason: Moderate-Severe Pain & Pre PT Stop: 06/08/20 12:49 Last Admin: 05/30/20 02:08 Dose: 10 mg Documented by: Oxycodone HCl (Oxycodone Hcl 15 Mg Tabcr (Oxycontin)) 30 mg PO BID NIDIA Stop: 06/08/20 20:59 Last Admin: 05/30/20 07:31 Dose: 30 mg Documented by: Pneumococcal Polyvalent Vaccine (Do Not Administer Pneumococcal Vaccine) 1 ea N/A PRN PRN PRN Reason: Notification Stop: 06/24/20 12:49 Senna/Docusate Sodium (Docusate Sodium/Senna 50/8.6mg Tab) 2 tab PO HS NIDIA Stop: 06/24/20 20:59 Last Admin: 05/29/20 20:47 Dose: 2 tab Documented by: Sodium Biphosphate/Sodium Phosphate (Sod Phosphate/Sod Biphosphate Enema 132 Ml Btl) 132 ml MS ONE PRN PRN Reason: Constipation Stop: 06/24/20 12:49 Tramadol HCl (Tramadol Hcl 50 Mg Tablet) 50 - 100 mg PO Q4H PRN PRN Reason: Moderate-Severe Pain & Pre PT Stop: 06/24/20 12:49 Last Admin: 05/28/20 08:03 Dose: 50 mg Documented by:
[2020-05-30] MEDS: lisinopriL 10 MG TAB PO SCH (09:07)
[2020-05-30] MEDS: AZITHROMYCIN 250 MG TAB PO SCH (09:07)
[2020-05-30] MEDS: cloNIDine HCL 0.1 MG TAB PO SCH ×2 (09:07→20:49)
[2020-05-30] MEDS: metroNIDAZOLE 500 MG/100 ML BAG IV SCH ×2 (11:23→17:39)
--- NOTE | 2020-05-30 11:38 | Orthopedic Progress Note ---
Date of Service May 30, 2020 Assessment & Plan (1) Neurogenic claudication due to lumbar spinal stenosis: Admission and Anticipated Discharge Date Admission Date: May 25, 2020 This time the patient is progressing slowly with physical therapy and we are goi ng to attempt rehab placement. Subjective Patient's back pain is controlled no leg pain. Physical Exam Physical Exam: Patient is in the chair at the bedside. Is reasonable strength testing. Results & Data ([facility]) Vital Signs (Past 12 Hours) Vital Signs Temp Pulse Resp BP Pulse Ox 05/30/20 07:09 36.9 C 72 16 124/68 90
[2020-05-30] MEDS: cefTRIAXone SODIUM 2,000 MG in DEXTROSE 5% 50 ML IV SCH (12:37)
[2020-05-30] MEDS: POLYETHYLENE (MIRALAX) 17 GM PACK PO SCH (16:12)
[2020-05-30] MEDS ORDERED: LIDOCAINE 5% 1 PATCH TD SCH ×2 (16:45)
[2020-05-30] MEDS: LIDOCAINE 5% 1 PATCH TD SCH (17:36)
[2020-05-30] MEDS: dilTIAZem HCL 180 MG CAPCR PO SCH (20:49)
[2020-05-30] MEDS: guaiFENesin 600 MG TABCR PO SCH (20:49)
[2020-05-30] MEDS: ASPIRIN 81 MG ECTAB PO SCH (20:49)
[2020-05-30] MEDS: DOCUSATE SODIUM/SENNA 50/8.6MG TAB PO SCH (20:49)
[2020-05-31] MEDS: metroNIDAZOLE 500 MG/100 ML BAG IV SCH ×2 (00:55→08:21)
[2020-05-31] MEDS: OXYCODONE HCL IR 5 MG TAB (IMMEDIATE RELEASE) PO PRN ×3 (00:55→11:07)
[2020-05-31 05:51] LABS: Hematocrit (blood only) 31.5 % (42-52); Hemoglobin 10.3 g/dL (14.0-18.0); Mean Corpuscular Hgb Conc 32.7 g/dL (32-36); Mean Corpuscular Volume 85.6 fL (80-100); Mean Platelet Volume 8.8 fL (7.4-10.4); Platelet Count 284 K/uL (130-400); RDW Coefficient of Variation 13.4 % (11.5-14.5); RDW Standard Deviation 42.3 fL (36.4-46.3); Red Blood Count 3.68 M/uL (4.7-6.1); White Blood Count 10.88 K/uL (4.8-10.8)
[2020-05-31 06:25] LABS: Calcium 8.7 mg/dl (8.5-10.1); Creatinine Clr Calc Pharmacy 53.9 ml/min; Est GFR (African American) 62.3; Est GFR (Non-African American) 53.8; Phosphorus 2.7 mg/dl (2.5-4.9)
[2020-05-31] MEDS: guaiFENesin 600 MG TABCR PO SCH (08:14)
[2020-05-31] MEDS: OXYCODONE HCL 15 MG TABCR (OXYCONTIN) PO SCH (08:14)
[2020-05-31] MEDS: AZITHROMYCIN 250 MG TAB PO SCH (08:14)
[2020-05-31] MEDS: lisinopriL 10 MG TAB PO SCH (08:15)
[2020-05-31] MEDS: cloNIDine HCL 0.1 MG TAB PO SCH (08:15)
[2020-05-31] MEDS: LIDOCAINE 5% 1 PATCH TD SCH ×2 (08:16→08:21)
[2020-05-31] MEDS: POLYETHYLENE (MIRALAX) 17 GM PACK PO SCH (08:18)
--- NOTE | 2020-05-31 08:22 | Hospitalist Progress Note ---
Date of Service May 31, 2020 Assessment & Plan Admission and Anticipated Discharge Date Admission Date: May 25, 2020 Results & Data Results & Data ([facility]) Vital Signs (Past 12 Hours) Vital Signs Temp Pulse Resp BP Pulse Ox 05/31/20 06:32 36.8 C 73 16 119/66 91 05/30/20 23:42 36.7 C 73 18 122/63 92 05/30/20 20:52 16 94 05/30/20 20:45 78 16 135/68 88 L Laboratory Results 05/31/20 05/31/20 05/30/20 Range/Units 05:09 05:09 05:33 WBC 10.88 H (4.8-10.8) K/uL RBC 3.68 L (4.7-6.1) M/uL Hgb 10.3 L (14.0-18.0) g/dL Hct 31.5 L (42-52) % MCV 85.6 (80-100) fL MCH 28.0 (25-34) pg MCHC 32.7 (32-36) g/dL RDW Std Deviation 42.3 (36.4-46.3) fL RDW Coeff of [place] 13.4 (11.5-14.5) % Plt Count 284 (130-400) K/uL MPV 8.8 (7.4-10.4) fL Sodium 131 L (136-145) mmol/L Potassium 4.0 (3.5-5.1) mmol/L Chloride 99 (98-107) mmol/L Carbon Dioxide 28 (21-32) mmol/L Anion Gap 4.0 (3-11) BUN 19 H (7-18) mg/dl Creatinine 1.33 (0.6-1.4) mg/dl Est Cr Clr Drug Dosing 53.9 ml/min Est GFR ( Amer) 62.3 Est GFR (Non-Af Amer) 53.8 BUN/Creatinine Ratio 14.0 (10-20) Glucose 146 H (70-99) mg/dl Calcium 8.7 (8.5-10.1) mg/dl Phosphorus 2.7 (2.5-4.9) mg/dl Magnesium 2.6 H (1.8-2.4) mg/dl Medications Administered Current Inpatient Medications Acetaminophen (Acetaminophen 500 Mg Tab) 1,000 mg PO Q8H PRN PRN Reason: MILD Pain Scale 1,2,3 & Pre PT Stop: 06/24/20 12:49 Al Hydrox/Mg Hydrox/Simethicone (Aluminum/Magnesium Susp 30 Ml Udc) 30 ml PO Q6H PRN PRN Reason: Dyspepsia Stop: 06/24/20 12:49 Aspirin (Aspirin 81 Mg Ectab) 81 mg PO QPM [facility] Stop: 06/24/20 20:59 Last Admin: 05/30/20 20:49 Dose: 81 mg Documented by: Azithromycin (Azithromycin 250 Mg Tab) 500 mg PO DAILY [facility]; Protocol Stop: 06/03/20 12:59 Last Admin: 05/31/20 08:14 Dose: 500 mg Documented by: Bisacodyl (Bisacodyl 10 Mg Supp) 10 mg [place] DAILY PRN PRN Reason: Constipation Stop: 06/24/20 12:49 Clonidine HCl (Clonidine Hcl 0.1 Mg Tab) 0.4 mg PO BID [facility] Stop: 06/24/20 20:59 Last Admin: 05/31/20 08:15 Dose: 0.4 mg Documented by: Diltiazem HCl (Diltiazem Hcl 180 Mg Capcr) 360 mg PO QPM [facility] Stop: 06/24/20 20:59 Last Admin: 05/30/20 20:49 Dose: 360 mg Documented by: Diphenhydramine HCl (Diphenhydramine Hcl 25 Mg Cap) 25 mg PO Q6H PRN PRN Reason: Allergic Rhinitis/Insomnia Stop: 06/24/20 12:49 Famotidine (Famotidine 20 Mg Tab) 20 mg PO Q12H PRN PRN Reason: Dyspepsia Stop: 06/24/20 12:49 Guaifenesin (Guaifenesin 600 Mg Tabcr) 600 mg PO Q12 [facility] Stop: 06/29/20 20:59 Last Admin: 05/31/20 08:14 Dose: 600 mg Documented by: Hydromorphone HCl (Hydromorphone Inj 0.5 Mg/0.5 Ml Syr) 0.5 mg IV Q3H PRN PRN Reason: MOD pain (scale 4-6) & Pre PT Stop: 06/08/20 12:49 Hydromorphone HCl (Hydromorphone Inj 1 Mg/Ml Syringe) 1 mg IV Q3H PRN PRN Reason: severe pain (scale 7-10) Stop: 06/08/20 12:49 Last Admin: 05/28/20 12:43 Dose: 1 mg Documented by: Hydroxyzine HCl (Hydroxyzine Hcl 25 Mg Tab) 25 mg PO Q8H PRN PRN Reason: Anxiety Stop: 06/24/20 12:49 Promethazine HCl 12.5 mg/ (Sodium Chloride) 50.5 mls @ 204 mls/hr IV Q6H PRN PRN Reason: Nausea &/or Vomiting Stop: 06/24/20 12:49 Lorazepam (Ativan) 0.5 mg in 1 mls @ 0.5 mls/min IV Q8H PRN PRN Reason: Sedation/Anxiety Stop: 06/24/20 12:49 Ceftriaxone Sodium 2,000 mg/ (Dextrose) 70 mls @ 100 mls/hr IV Q24H [facility] Stop: 06/03/20 12:29 Last Infusion: 05/30/20 13:59 Dose: Infused Documented by: Metronidazole (Flagyl) 500 mg in 100 mls @ 100 mls/hr IV Q8H [facility] Stop: 06/06/20 08:59 Last Infusion: 05/31/20 01:59 Dose: Infused Documented by: Influenza Virus Vaccine Quadrival (Do Not Administer Flu Vaccine) 1 ea N/A PRN PRN PRN Reason: Notification Stop: 06/24/20 12:49 Lidocaine (Lidocaine 5% 1 Patch) 2 patch [facility] Stop: 06/29/20 16:59 Last Admin: 05/31/20 08:16 Dose: 2 patch Documented by: Lisinopril (Lisinopril 10 Mg Tab) 10 mg PO QAM [facility] Stop: 06/26/20 08:59 Last Admin: 05/31/20 08:15 Dose: 10 mg Documented by: Lorazepam (Lorazepam 0.5 Mg Tab) 0.5 mg PO Q8H PRN PRN Reason: Sedation/Anxiety Stop: 06/24/20 12:49 Magnesium Hydroxide (Magnesium Hydroxide Susp 30 Ml Udc) 30 ml PO DAILY PRN PRN Reason: Constipation Stop: 06/24/20 12:49 Metoclopramide HCl (Metoclopramide Hcl Inj 5 Mg/Ml 2 Ml Vial) 10 mg IV Q6H PRN PRN Reason: Nausea &/or Vomiting Stop: 06/24/20 12:49 Miscellaneous (Remove Lidoderm Patch) 1 ea N/A DAILY@2100 [facility] Stop: 06/29/20 20:59 Last Admin: 05/30/20 23:27 Dose: 1 ea Documented by: Naloxone HCl (Naloxone Hcl 0.4 Mg/1 Ml Vial/Carp) 0.1 mg IV Q5M PRN; Protocol PRN Reason: Oversedation/Resp Depression Stop: 06/24/20 12:49 Ondansetron HCl (Ondansetron Inj 2 Mg/Ml 2 Ml Vial) 4 mg IV Q6H PRN PRN Reason: Nausea &/or Vomiting Stop: 06/24/20 12:49 Ondansetron HCl (Ondansetron 4 Mg Od Tab) 4 mg PO Q6H PRN PRN Reason: Nausea Stop: 06/24/20 12:49 Oxycodone HCl (Oxycodone Hcl Ir 5 Mg Tab (Immediate Release)) 5 - 10 mg PO Q4H PRN PRN Reason: Moderate-Severe Pain & Pre PT Stop: 06/08/20 12:49 Last Admin: 05/31/20 06:01 Dose: 10 mg Documented by: Oxycodone HCl (Oxycodone Hcl 15 Mg Tabcr (Oxycontin)) 30 mg PO BID [facility] Stop: 06/08/20 20:59 Last Admin: 05/31/20 08:14 Dose: 30 mg Documented by: Pneumococcal Polyvalent Vaccine (Do Not Administer Pneumococcal Vaccine) 1 ea N/A PRN PRN PRN Reason: Notification Stop: 06/24/20 12:49 Polyethylene Glycol (Polyethylene (Miralax) 17 Gm Pack) 17 gm PO DAILY [facility] Stop: 06/29/20 16:14 Last Admin: 05/31/20 08:18 Dose: Not Given Documented by: Senna/Docusate Sodium (Docusate Sodium/Senna 50/8.6mg Tab) 2 tab PO HS [facility] Stop: 06/24/20 20:59 Last Admin: 05/30/20 20:49 Dose: 2 tab Documented by: Sodium Biphosphate/Sodium Phosphate (Sod Phosphate/Sod Biphosphate Enema 132 Ml Btl) 132 ml [place] ONE PRN PRN Reason: Constipation Stop: 06/24/20 12:49 Tramadol HCl (Tramadol Hcl 50 Mg Tablet) 50 - 100 mg PO Q4H PRN PRN Reason: Moderate-Severe Pain & Pre PT Stop: 06/24/20 12:49 Last Admin: 05/28/20 08:03 Dose: 50 mg Documented by:
--- NOTE | 2020-05-31 08:57 | XRay Report ---
XR chest 2V PA/lateral CLINICAL HISTORY: post op COMPARISON STUDY: Chest radiograph May 27, 2020. FINDINGS: Mild elevation the right hemidiaphragm is unchanged. There is no pneumothorax. There are tr art bilateral pleural effusions. Mild bibasilar opacities have improved. Lumbar spine fusion hardware is partially imaged.. Mild cardiomegaly is noted without evidence for pulmonary edema. IMPRESSION: 1. Interval improvement in bibasilar opacities which favor atelectasis. 2. Trace bilateral pleural effusions. 3. Stable mild elevation of the right hemidiaphragm. ACT 112: Negative or not required by law. Electronically signed by: Noel Negrete M.D. 05/31/2020 8:56 AM
--- NOTE | 2020-05-31 11:19 | Discharge Summary ---
Date of Service May 31, 2020 Admission HPI Per Admitting Provider This is a 7-year-old male who presents with worsening back and bilateral leg pain. After failing extensive course of nonoperative care here for surgical intervention. Principal Diagnosis Lumbar spinal stenosis with neurogenic claudication Discharge Data Allergies Allergy/AdvReac Type Severity Reaction Status Date / Time No Known Allergies Allergy Verified 05/25/20 08:19 Consultations 05/25/20 12:50 Consult Case Management - Discharge Planning Routine Consult Hospitalist Routine Procedures Performed Operation Date: 05/25/20 09:35 Actual Procedures p L2-S1 Revison Decompression and Fusion, Application of OsteoAmp and Bone Morphogenetic Protein, Spinal Cord Monitoring(Not Applicable) - Ryan King DO Ordered Studies 05/25/20 07:00 FL fluoroscopy <1hr Routine FL lumbar spine 2-3V Routine Hospital Course (1) Neurogenic claudication due to lumbar spinal stenosis: Patient underwent multilevel lumbar decompression fusion tolerated this well was taken to orthopedic for postoperative. He did undergo bedrest for the first 24 hours then we initiate physical therapy. He progressed appropriately throughout his hospital stay. He was subsequently discharged to rehab. On the day of discharge he had excellent strength testing was walking without difficulty. 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 You may walk to your tolerance. It is good exercise for your legs and back. Expect some back and intermittent leg aches and pains. 2. You may perform "counter-top" level activities (make a sandwich, migue with a project, etc.). 3. No bending or lifting of more than 10 pounds or back twisting of any nature (roll like a log when turning in bed). 4. You may ride in a car for 20-30 minutes at a time. No driving until after your first visit with your doctor. 5. Frequent changes of position and restricting sitting to 30 minutes at a time will help limit the amount of back spasms and stiffness you may experience. 6. You may discontinue the use of ambulatory aids (cane, crutches, etc.) once your strength and confidence allow. 7. You may automatic wheel line operator the shower and let water strike your incision when you arrive home at least once daily. Do not take a tub bath, sit in a hot tub or go into a swimming pool until after your first recheck in the office. SPECIAL CARE INSTRUCTIONS: VERY IMPORTANT TO READ AND REVIEW A. Your surgical incision has been closed with a cosmetic suture under the skin that will dissolve in about 6 weeks. In 14 days, you can use a pair of clean scissors and cut the suture that is left outside of the skin at the ends of your incision. 1. The small skin tapes can be removed 7 days after surgery if they have not fallen off by that point. 2. You may keep the wound open to air as much as possible to promote healing after post-op day number 5 unless told otherwise by your doctor. 3. If you think the wound looks like it is becoming infected (redness or worsening drainage) and/or you are experiencing fever, chill or worsening back pain and muscle spasms, contact the office so that we may evaluate you as soon as possible. B. Complications are uncommon, but please contact us if you have any signs or symptoms of: 1. wound infection (fever higher than 102.5 degrees F, redness, separation of wound, drainage, or increasing pain from the incision) 2. blood clots in legs (pain, swelling, redness and warmth in legs) 3. urinary tract infection (fever higher than 102.5 degrees F, burning upon urination or increased frequency of urination) 4. nerve problems (inability to walk on your toes or heels, numbness, loss of bowel or bladder control) 5. any other symptoms that concern you C. Please call the office at if you have any concerns or questions about your operation or recovery. D. No smoking! Smoking drastically decreases the chance of a solid fusion. E. Do not take any anti-inflammatory medications (Indocin, Advil, Motrin, Aspirin, Naprosyn, etc.) as these may inhibit the chance of a solid fusion. Tylenol is okay to take for pain. MANAGING PAIN AFTER SPINAL SURGERY 1. Narcotic medication is intended for short-term use and will be provided for surgical pain. Surgical pain usually lasts for a period of 4-6 weeks. Narcotic medication includes Percocet, Vicodin, Darvocet, Tylenol #3 or Lortab. 2. Longer-term pain is more appropriately treated with non-narcotic medication such as Tylenol ES. 3. Muscle spasm is not appropriately treated with narcotics. Muscle relaxers such as Soma, Flexeril or Skelaxin can be used along with Tylenol ES. 4. Remember that we all live with some "aches and pains". This is not unusual or uncommon after an injury or as we get older. a. Back pain is expected and may include muscle spasms for 4 to 6 weeks after surgery. The pain should gradually improve. If the pain worsens for no apparent reason, please contact the office. b. Intermittent leg pain may also be experienced and should not be concerned about unless it worsens for no apparent reason. If so, please contact the office. 5. We will provide appropriate medication within the normal guidelines of their prescribed use. We will also be very cautious and aware of potential abuse and extended duration of patients' medication needs. a. Pain medications are for your comfort and to assist with sleep and rest so that the tissue can heal. They are not provided in order to return to normal activity and should not be used through the day. To do so or worsening pain at night can result from ongoing tissue damage and development of tolerance to the prescribed medicine. 6. Please allow 2-3 days to process refills. Prescriptions will not be mailed but must be picked up at the office. FOLLOW UP VISIT: Keep your scheduled follow-up appointment. Any questions, please call the office at . Pending Studies at Discharge: No Stand-Alone Forms: My [employer], Smoking Cessation Skilled Items Patient informed of condition?: Yes DNR: No Discharge Level of Care: Acute rehab Communicable Disease: No Discharge Prognosis: Improving Lines: None Urinary Catheter: No Medications and DC Order Prescriptions: New cefdinir 300 mg capsule 300 mg PO Q12H 10 Days Qty: 20 RF: 0 azithromycin 500 mg tablet 500 mg PO DAILY 3 Days Qty: 3 RF: 0 oxycodone 5 mg tablet 5 mg PO Q6H PRN (Reason: pain, severe) Qty: 20 RF: 0 tramadol 50 mg tablet 50 mg PO Q6H PRN (Reason: pain, moderate) Qty: 20 RF: 0 Continued hydrocodone-acetaminophen 5-325 mg Tablet 1 - 2 tab PO Q8H PRN (Reason: Pain) RF: 0 diltiazem HCl 360 mg Capsule,Extended Release 24 Hr 360 mg PO QPM RF: 0 aspirin 81 mg Tablet,Delayed Release (Dr/Ec) 81 mg PO QPM RF: 0 clonidine HCl 0.2 mg Tablet 0.4 mg PO BID RF: 0 oxycodone 30 mg Tablet,Oral Only,Ext.Rel.12 Hr 30 mg PO BID RF: 0 Discharge Orders: Discharge Order (Routine); Ordered 05/31/20 Ordered By: Ryan King Admission Data Admit Date/Time: 05/25/20 12:50 Attending Provider: Ryan King Admit Provider: Ryan King Primary Care Provider: Joseph Bradley Other Providers: [facility],Home Healthcare ; Paul Coppola
[2020-05-31] MEDS: cefTRIAXone SODIUM 2,000 MG in DEXTROSE 5% 50 ML IV SCH (11:49)
== END 2020-05-31 14:05 | DRG 459 ==
LOC: ASU 07:46 → 3E 12:50